=== PATIENT | female | born 1975 | race Caucasian/White ===

== ENCOUNTER 2019-07-01 08:46 | Observation (INO) | payer OTHER, SELFPAY ==
[2019-07-01] VITALS (17 sets, daily range): BP systolic 84–111; BP diastolic 53–77; PULSE 62–86; RESP 8–18; TEMP 36.1–37.1; O2SAT 92–100; BMI 33.5
--- NOTE | ~2019-07-01 | US_ITS ---
EXAMINATION: US renal BI DATE: 07/01/2019 16:52 INDICATION: Acute kidney injury TECHNIQUE: Multiple grayscale and Doppler ultrasound images of the kidneys were obtained. COMPARISON: None. FINDINGS: The right kidney measures 11.4 x 5.8 x 4.9 cm. The left kidney measures 11.4 x 5 x 7.2 cm. The kidneys demonstrate normal parenchymal echogenicity. There is no hydronephrosis. The bladder is n ormal. IMPRESSION: 1. Normal kidneys without hydronephrosis. Reviewed, dictated and finalized at location A.
--- NOTE | ~2019-07-01 | XR_ITS ---
EXAMINATION: XR chest 2V DATE: 07/01/2019 09:26 INDICATION: Left chest pain. TECHNIQUE: Frontal and lateral views of the chest were obtained. COMPARISON: None. FINDINGS: The chest demonstrates clear lungs without pneumonia, pleural effusion, or pneumothorax. Th e heart size is normal. IMPRESSION: 1. No acute cardiopulmonary disease. Reviewed, dictated and finalized at location A.
--- NOTE | 2019-07-01 08:55 | ECG_ITS ---
Measurements Intervals [place] Rate: 72 P: 36 NM: 158 QRS: 31 QRSD: 109 T: 37 QT: 416 QTc: 457 Interpretive Statements SINUS RHYTHM BORDERLINE R WAVE PROGRESSION, ANTERIOR LEADS BORDERLINE ST-T WAVE ABNORMALITY- HIGH LATERAL LEADS BORDERLINE ECG Electronically Signed On 07-01-2019 9:09:08 CDT by Erik Allan D.O.
--- NOTE | 2019-07-01 09:03 | ED.CHESTPAIN ---
HPI - Chest Pain General Chief Complaint: Chest Pain Stated Complaint: CP Source: patient and EMS Mode of arrival: EMS Limitations: no limitations History of Present Illness HPI narrative: Patient is a 43-year-old female who presents to the emergency department for evaluation of chest pain. Pain is described as a deep, aching sensation, pressure over the middle of chest and left side of the chest with radiation to the left shoulder and arm. Associated with nausea and vomiting this morning, diaphoresis, lightheadedness. 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 In transport, patient was given an aspirin and a nitroglycerin which helped improve her pain. Patient typically takes Suboxone, does not want any other pain medication. She has a positive family history for NC in an immediate family member, she has hypertension, hyperlipidemia and diabetes. She is a current smoker. Related Data Home Medications Medication Instructions Recorded Confirmed lithium carbonate 450 mg PO BID 07/01/19 Allergies Allergy/AdvReac Type Severity Reaction Status Date / Time morphine Allergy Severe Hives Verified 07/01/19 08:52 Review of Systems Review of Systems: Narrative: CONSTITUTIONAL: Denies fever, chills, or sweats. CARDIOVASCULAR: Reports chest pain, denies palpitations or edema RESPIRATORY: Denies cough or dyspnea. GASTROINTESTINAL: Denies abdominal pain, nausea, vomiting, or diarrhea. GENITOURINARY: Denies dysuria or hematuria. SKIN: Denies rash or itching. MUSCULOSKELETAL: Denies back pain, joint pain, or myalgia. NEUROLOGIC: Denies headache, numbness, or weakness. [facility] Past Medical History Medical History (Updated 07/01/19 @ 10:29 by Pilar Tubbs MD) Hyperlipidemia Hypertension Type 2 diabetes mellitus Surgical History Surgical History (Updated 07/01/19 @ 09:45 by Pilar Tubbs MD) H/O: hysterectomy Hx of tonsillectomy Social History Social History (Updated 07/01/19 @ 09:45 by Pilar Tubbs MD) Smoking status: Current every day smoker Tobacco type: cigarettes and e-cigarettes/vaping Alcohol intake: current Substance use: never Gender identity (if verbalized by the patient): Female Exam Narrative: Exam Narrative: GENERAL: Awake, alert, conversant HEAD: Normocephalic, atraumatic. EYES: PERRLA and EOMI. ENT: Nares clear, no rhinorrhea or epistaxis. Mucous membranes moist. NECK: Supple. CHEST: No respiratory distress, breathing even and non labored, no chest wall tenderness HEART: Regular rate, sinus rhythm ABDOMEN:Non distended, non tender EXTREMITIES: Normal range of motion. No edema. SKIN: Warm, dry, no rash. NEURO:No focal deficits. Alert and oriented x3 Course Vital Signs Vital signs: Vital Signs Temperature 37.1 C 07/01/19 08:44 Pulse Rate 80 07/01/19 08:44 Respiratory Rate 18 07/01/19 08:44 Blood Pressure 106/77 07/01/19 08:44 Pulse Oximetry 97 07/01/19 08:44 Temperature 37.1 C 07/01/19 08:44 Pulse Rate 66 07/01/19 09:48 Respiratory Rate 18 07/01/19 09:48 Blood Pressure 98/67 L 07/01/19 09:48 Pulse Oximetry 94 07/01/19 09:48 MDM - Chest Pain MDM Narrative Medical decision making narrative: Patient is a 43-year-old female who presents for evaluation of chest pain. At the time of initial assessment, ABCs are intact and vital signs are stable. Patient has borderline low blood pressure after receiving nitroglycerin in route by EMS. Patient with mild pain at this point. EKG with nonspecific findings. No evidence of acute ST elevation or depression that would be concerning for ischemia. Initial troponin is negative. Patient with a heart score of 5. Shared decision-making occurred, with the patient, I also spoke with the health unit clerk, we will admit her for troponin trend, health unit clerk will determine additional intervention if she will have st
[2019-07-01 09:11] LABS: Basophils Absolute Auto 0.1 K/mm3 (0.0-0.1); Basophils Percent Auto 0.4 % (0.2-1.2); Eosinophils Absolute Auto 0.4 K/mm3 (0-0.3); Hematocrit 34.4 % (37.0-47.0); Hemoglobin 10.9 g/dL (12.0-15.0); Immature Granulocyte Absolute 0.05 K/mm3 (0.00-0.031); Immature Granulocyte Percent A 0.4 % (0-0.5); Lymphocytes Absolute Auto 2.37 K/mm3 (0.9-3.2); Lymphocytes Percent Auto 17.1 % (18.3-44.2); Mean Corpuscular HGB Conc 31.7 g/dl (32-36); Mean Corpuscular Hemoglobin 26.7 pg (26-34); Mean Corpuscular Volume 84.3 fl (80-100); Mean Platelet Volume 10.9 fl (7.4-10.4); Monocytes Absolute Auto 0.8 K/mm3 (0.1-0.6); Monocytes Percent Auto 5.5 % (2.6-8.5); Neutrophils Absolute Auto 10.2 K/mm3 (1.3-6.7); Neutrophils Percent Auto 73.6 % (45.5-73.1); Platelet Count Result 358 k/mm3 (150-375); Red Blood Count 4.08 M/mm3 (4.2-5.4); Red Cell Distribution Width 14.3 % (11.5-14.5); White Blood Count 13.9 K/mm3 (4.5-10.0)
[2019-07-01 09:16] LABS: INR 0.9; Partial Thromboplastin Time 28.7 SECONDS (22.3-36.8); Prothrombin Time 11.9 Seconds (11.1-14.7)
[2019-07-01 09:17] LABS: Blood Urea Nitrogen 7 mg/dL (7-17); Calcium 9.5 mg/dL (8.4-10.2); Carbon Dioxide 27 mmol/L (22-30); Chloride 99 mmol/L (98-107); Estimated CRCL calculation 50 ml/min; Estimated Glomerular Filt Rate 38; Glucose 158 mg/dL (65-105); Potassium 2.9 mmol/L (3.4-5.0); Sodium 138 mmol/L (137-145)
[2019-07-01 09:30] LABS: Troponin I < 0.012 ng/mL (0.000-0.034)
[2019-07-01] MEDS: SODIUM CHLORIDE 0.9% IV 1,000 ML 999 ML IV CONT (10:37)
[2019-07-01] MEDS: POTASSIUM CHLORIDE 20 MEQ PACKET (FOR LIQUID) 40 MEQ PO (10:38)
--- NOTE | 2019-07-01 11:47 | ADMGEN ---
This patient, Martha Dumont, was admitted to IMU Room 213-01 on 07-01-2019 at 1125. Patient/family oriented to hospital policies and general routines including ID bracelet, bed and alarms, visiting hours, pain management, procedures, bathroom and other care routines, personal items, smoking policy, room service/diet, and visiting hours. Valuables list has been completed. Information on how to activate the Rapid Response Team has been discussed. Patient/Family are encouraged to report perceived risks to care and to ask questions if they do not understand what they are told or what they should do.
[2019-07-01 12:40] LABS: Troponin I < 0.012 ng/mL (0.000-0.034)
--- NOTE | 2019-07-01 12:40 | PM.CNCAR ---
Assessment and Plan Assessment and plan (1) Chest pain: Qualifiers: Chest pain type: unspecified Qualified Code(s): R07.9 - Chest pain, unspecified Code(s): R07.9 - Chest pain, unspecified Status: Acute Assessment and Plan: 43 y/o with h/o HTN, DM, HLD, active tobacco abuse who presented with chest pain. She ruled out for SC so far with EKG and first trop. Second trop pending Chest pain characteristic are very typical for anginal. With her multiple cardiovascular risk factors and strong family history will proceed with LHC/coronary angiogram to assess for CAD and potentially treat with PCI if needed. She received ASA but has not received second antiplatelet. I explained procedure in details to patient. She understands risks and benefits. She is willing to proceed. Would need to hold Metformin for 2 days post procedure. (2) Hypertension: Code(s): I10 - Essential (primary) hypertension Status: Acute Assessment and Plan: Resume Losartan (3) Type 2 diabetes mellitus: Code(s): E11.9 - Type 2 diabetes mellitus without complications Status: Acute Assessment and Plan: Hold Metformin for LHC. (4) Hyperlipidemia: Code(s): E78.5 - Hyperlipidemia, unspecified Status: Acute Assessment and Plan: Start high intensity Statin if not already on one. History of Present Illness History of Present Illness Consult date/time: 07/01/19 12:40 43 y/o female with h/o HTN, Dm (since 2012), active tobacco and marijuana abuse, prior narcotic use use now on suboxone, bipolar on [place] who presented with chest pain. She was at work when developed left sided chest pressure that radiated down to her left arm. She was not doing any thing exertional at that time. chest pressure was associated with nausea, diaphoresis and dizziness. Pain lasted for an hour and eventually her co-workers called ambulance. She received nitro in ER which decreased her pain from 8/10 to 3/10. She continues to have very mild residual pressure sensation. EKG showed normal sinus rhythm and non specific CT changes. First trop is negative. Second trop pending She smokes marijunan daily. She smokes 1 pack every 2-3 days Her mother (mid 60s) has CAD with many stents in heart and legs. Father has DM Reason For Visit: Unstable angina Review of Systems Review of Systems: All systems reviewed & are unremarkable except as noted in HPI and below Constitutional: Constitutional: Denies fatigue and Denies headache(s) Eyes: Eyes: Denies blurry vision ENT: Reports Normal hearing present and Denies headache(s) Cardiovascular: Cardiovascular: Denies chest pain, Denies diaphoresis, Denies pedal edema, Denies leg edema, Denies lightheadedness, Denies palpitations and Denies dyspnea Respiratory: Respiratory: Denies cough and Denies dyspnea Gastrointestinal: Gastrointestinal: Denies abdominal pain Musculoskeletal: Musculoskeletal: Denies back pain Neurologic: Reports Normal hearing present and Denies headache(s) Psychiatric: Psychiatric: Denies anxiety Endocrine: Endocrine: Denies fatigue and Denies palpitations PMFSH Past Medical History Medical History (Updated 07/01/19 @ 12:47 by Marino Rojas MD) Hyperlipidemia Hypertension Type 2 diabetes mellitus Surgical History Surgical History (Updated 07/01/19 @ 09:45 by Pilar Tubbs MD) H/O: hysterectomy Hx of tonsillectomy Family History Family History (Updated 07/01/19 @ 11:50 by Jesi Chester RN) Mother Cerebrovascular accident Liver cancer Peripheral vascular disease Rheumatoid arthritis TIA (transient ischemic attack) Father Diabetes mellitus Sibling Lupus Rheumatoid arthritis Social History Social History (Updated 07/01/19 @ 09:45 by Pilar Tbubs MD) Smoking packs per day: 0.25 Smoking cigarettes per day: 5.0 Years smoked: 28 Smoking pack-years: 7.00 Smoking status: Current
--- NOTE | 2019-07-01 13:08 | PM.IMHP ---
H&P: HPI History of Present Illness Chief complaint: Unstable angina Narrative: Martha Dumont is a 43 year old female with DM, HTN, and HLD who presents to the emergency department for evaluation of chest pain. Patient states this morning around 5:00 a.m. she woke with pressure and tightness in the chest. It radiated to the left arm. This discomfort has been constant but waxes and wanes in severity. While at work doing light activity, she had increasing severity of the pain with associated shortness of breath and diaphoresis.. She did have nausea and vomiting this morning but does have cyclic vomiting syndrome she states. The chest discomfort improved when sitting. The pain might have been mildly pleuritic but was not palpable or positional. She has diabetes but does not check her glucose at home. Last A1c was 8.9. She also has high blood pressure High cholesterol is compliant with her medications. She states her physician feels her blood pressure and cholesterol as well controlled. EMS was contacted. In transport, patient was given an aspirin and a nitroglycerin which helped improve her pain. Patient brought to the emergency room for evaluation. In the emergency room, patient was hemodynamically stable. Patient's blood pressure was soft at times so no further nitroglycerin was given. Patient's potassium was low 2.9 and this was replaced. She is mildly anemic but she states this is chronic. White count is elevated but she denies dysuria, hematuria, fever, chills. She has a chronic smoker's cough without change. Patient is admitted for further care. Patient has been seen by Cardiology with plans for heart catheterization later today. Patient is under quite a bit of stress. She lives with her roommate who used to be her partner. Her ex-partner is seeing someone else now. This is stress ful and patient feels suicidal. She however states she has been suicidal for 45 yrs. She sees a a counselor with plans in seeing them in July. She has not attempted suicide. Patient has started lithium recently. Review of Systems Review of Systems: All systems reviewed & are unremarkable except as noted in HPI and below PMFSH Past Medical History Medical History (Updated 07/01/19 @ 13:56 by Eddie Hauser MD) Bipolar disorder History of drug use Hyperlipidemia Hypertension Type 2 diabetes mellitus Peripheral neuropathy Surgical History Surgical History (Updated 07/01/19 @ 13:50 by Eddie Hauser MD) H/O: hysterectomy Hx of oophorectomy bilateral Hx of tonsillectomy Family History Family History Mother Cerebrovascular accident Liver cancer Peripheral vascular disease Rheumatoid arthritis TIA (transient ischemic attack) Father Diabetes mellitus Sibling Lupus Rheumatoid arthritis Social History Social History (Updated 07/01/19 @ 13:51 by Eddie Hauser MD) Social History: Lives with her roommate who used to be her partner. She smokes a quarter of a pack a day the past 28 years. She smokes marijuana daily. No alcohol use. No history of IV drug use. She used to have a history of snorting heroin. She is a full code. She nominates mother to be the individual would make medical decisions for her if she is not able. Smoking packs per day: 0.25 Smoking cigarettes per day: 5.0 Years smoked: 28 Smoking pack-years: 7.00 Smoking status: Current every day smoker Tobacco type: cigarettes and e-cigarettes/vaping Alcohol intake: never Substance use: current Substance use type: marijuana Gender identity (if verbalized by the patient): Female Spiritual care concerns: No Meds Home Medications and Allergies Home Medications Medication Instructions Recorded Confirmed Type atorvastatin 40 mg PO DAILY 07/01/19 07/01/19 History baclofen 10 mg PO BID PRN 07/01/19 07/01/19 History buprenorphine-naloxone 1 tablet SUBLINGUAL Q8H 07/01/19
--- NOTE | 2019-07-01 14:03 | WPDMODSED ---
Moderate Sedation Note-Pt Data Patient Data Allergies Allergy/AdvReac Type Severity Reaction Status Date / Time morphine Allergy Severe Hives Verified 07/01/19 12:16 Home Medications Medication Instructions Recorded Confirmed Type lithium carbonate 450 mg PO BID 07/01/19 History Current Medications: Active Medications Acetaminophen (Tylenol Tablet) 650 mg PO Q4H PRN PRN Reason: Mild Pain (1-3) or Fever Aspirin (Aspirin Chewable) 81 mg PO DAILY@0800 NIRANJAN Nitroglycerin (Nitrostat Subl 0.4 Mg (1/150)) 0.4 mg SUBLINGUAL Q5MIN PRN PRN Reason: Chest Pain Ondansetron HCl (Zofran Inj) 4 mg IV PUSH Q4H PRN PRN Reason: Nausea Sedation/Anesthesia: No previous sedation/anesthesia problems (including family history). [facility] Past Medical History Medical History (Updated 07/01/19 @ 13:56 by Eddie Hauser MD) Bipolar disorder History of drug use Hyperlipidemia Hypertension Type 2 diabetes mellitus Peripheral neuropathy Surgical History Surgical History (Updated 07/01/19 @ 13:50 by Eddie Hauser MD) H/O: hysterectomy Hx of oophorectomy bilateral Hx of tonsillectomy Family History Family History Mother Cerebrovascular accident Liver cancer Peripheral vascular disease Rheumatoid arthritis TIA (transient ischemic attack) Father Diabetes mellitus Sibling Lupus Rheumatoid arthritis Social History Social History (Updated 07/01/19 @ 13:51 by Eddie Hauser MD) Social History: Lives with her roommate who used to be her partner. She smokes a quarter of a pack a day the past 28 years. She smokes marijuana daily. No alcohol use. No history of IV drug use. She used to have a history of snorting heroin. She is a full code. She nominates mother to be the individual would make medical decisions for her if she is not able. Smoking packs per day: 0.25 Smoking cigarettes per day: 5.0 Years smoked: 28 Smoking pack-years: 7.00 Smoking status: Current every day smoker Tobacco type: cigarettes and e-cigarettes/vaping Alcohol intake: never Substance use: current Substance use type: marijuana Gender identity (if verbalized by the patient): Female Spiritual care concerns: No Mod Sed Physical Exam Physical Exam Pre Procedural Exam: Normal: Appearance, Eyes, Ears, Nose, Neck, Throat, Airway, Lungs, Heart Size, Heart Rate, Heart Rhythm, Neuro Exam, Abdomen, Liver, Kidneys, Spleen, Breasts, Genitalia, Extremities and Skin Hours since solid foods: 8 Hours since liquid intake: 8 Internal Medicine - PN: Obj Da Vital Signs Vital Signs: Vital Signs - 24 hr 07/01/19 08:44 07/01/19 08:50 07/01/19 09:48 Temperature 37.1 C Pulse Rate 80 74 66 Respiratory Rate 18 18 Blood Pressure 106/77 98/67 L Pulse Oximetry 97 94 07/01/19 11:18 07/01/19 11:25 Temperature 36.1 C L Pulse Rate 78 82 Respiratory Rate 16 14 Blood Pressure 97/55 L 102/65 Pulse Oximetry 100 98 Intake/Output Intake/Output: Intake & Output 06/28/19 06/29/19 06/30/19 07/01/19 23:59 23:59 23:59 23:59 Intake Total 1000 Balance 1000 Meds/Results Medications: Active Medications Generic Name Dose Route Start Last Admin Trade Name Freq PRN Reason Stop Dose Admin Acetaminophen 650 mg 07/01/19 10:26 Tylenol Tablet PO Q4H PRN Mild Pain (1-3) or Fever Aspirin 81 mg 07/02/19 08:00 Aspirin Chewable PO DAILY@0800 [facility] Nitroglycerin 0.4 mg 07/01/19 10:26 Nitrostat Subl 0.4 Mg (1/150) SUBLINGUAL Q5MIN PRN Chest Pain Ondansetron HCl 4 mg 07/01/19 10:26 Zofran Inj IV PUSH Q4H PRN Nausea Radiology Results: ITS Impressions Chest X-Ray 07/01/19 09:28 IMPRESSION: 1. No acute cardiopulmonary disease. Labs CBC & Chem 7: 07/01/19 08:58 07/01/19 08:58 Labs: Laboratory Results - last 24 hr 07/01/19 07/01/19 07/01/19
--- NOTE | 2019-07-01 14:31 | P.PCNCC_ITS ---
Cardiac Cath Procedure Note Date of procedure:: 07/01/19 Performing physician:: Gerber Rock MD Procedure: 1. Left heart catheterization, selective coronary angiogram. 2. Left ventricular angiogram. 3. Conscious sedation. 4. Angio-Seal device for arterial hemostasis Head Packager: Dr. Gerber Rock Complications: None. Sedation: Conscious sedation, local anesthesia, using 1 mg of Versed said, 25 mcg of fentanyl, and using 1% lidocaine for local anesthesia. Technique: After informed consent was obtained from patient, was brought to the laborer stores, put in the laborer stores table, prepped and draped in usual sterile fashion. Five [place] sheath was inserted into the right common femoral artery, through the sheath 5 [place] JL4 catheter inserted, advanced to the left coronary artery, left coronary artery angiogram was obtained. The catheter was exchanged over guidewire into a 5 [place] JR4 catheter, advanced to the right coronary artery, right coronary artery angiogram was obtained. The catheter then was exchanged over guidewire into this 5 [place] pigtail catheter, advanced to left ventricle, left ventricular angiogram was obtained. The catheter then was pulled, the sheath was pulled applying Angio-Seal device for arterial hemostasis. Patient tolerated the procedure no complication, taken fro m the laborer stores to his room in stable condition stable vital signs. Hemodynamics: aortic pressure 104/60 . LV pressure 104/04 with LVEDP of 14 mmHg Angiographic findings: Left main: Medium size artery no significant disease or stenosis. Lad medium size artery showed no significant disease or stenosis Left circumflex artery, medium size artery, no significant disease or stenosis. RCA: Dominant vessel, showed no significant disease or stenosis LV: Normal size left ventricle with normal left ventricular systolic function. Summary: Mild coronary artery disease, normal left ventricular systolic function. Recommendation: Maximum medical treatment. Risk factor modification.
[2019-07-01] MEDS: SODIUM CHLORIDE 0.9% IV 1,000 ML 125 ML IV CONT (16:00)
[2019-07-01 17:19] LABS: Cholesterol 132 mg/dL (0-200); HDL Direct 27 mg/dL; Triglycerides 199 mg/dL (<150)
[2019-07-01 17:28] LABS: Troponin I < 0.012 ng/mL (0.000-0.034)
[2019-07-01 17:29] LABS: LDL Cholesterol Direct 70 mg/dL
[2019-07-01 17:35] LABS: Glucose Point of Care 84 (65-105)
--- NOTE | 2019-07-01 18:35 | PM.DS ---
DS: Diagnosis Admitting Diagnosis Admitting Diagnosis: Chest pain, unspecified Discharge Diagnosis (1) Chest pain: Qualifiers: Chest pain type: unspecified Qualified Code(s): R07.9 - Chest pain, unspecified Code(s): R07.9 - Chest pain, unspecified Status: Acute Assessment and Plan: Patient has been admitted to IMU. Aspirin has been continued. Trop X3 is negative. EKG showing borderline R-wave progression and borderline ST T wave changes in high lateral leads. Cardiology has been consulted. Left heart catheterization performed on 07/01/19 showing mild coronary artery disease, normal left ventricular systolic function. Continue medical management. (2) Suicidal ideation: Code(s): R45.851 - Suicidal ideations Status: Acute Assessment and Plan: Patient feels suicidal but this seems to be more chronic situation. She is currently on medications for bipolar/depression. We had Crisis consulted and safety contract made. Continue home medications. Follow up with counselor in July. (3) Type 2 diabetes mellitus: Code(s): E11.9 - Type 2 diabetes mellitus without complications Status: Acute Assessment and Plan: Last A1c was 8.9. Placed on sliding scale protocol. (4) Hypertension: Code(s): I10 - Essential (primary) hypertension Status: Acute Assessment and Plan: Blood pressure soft at times. She is on losartan and hydrochlorothiazide. She may be dehydrated given the renal insufficiency. The hypokalemia most likely related to the medications. She was treated with IV fluids. Plan to hold antihypertensive medications. (5) Renal insufficiency: Code(s): N28.9 - Disorder of kidney and ureter, unspecified Status: Acute Assessment and Plan: Creatinine 1.5 with a normal BUN. Baseline creatinine unavailable. She was started on IV fluids. Antihypertensive medications held. Renal US results pending. (6) Hypokalemia: Code(s): E87.6 - Hypokalemia Status: Acute Assessment and Plan: Potassium 2.9 most likely related to the hydrochlorothiazide. This has been replaced. (7) Bipolar disorder: Code(s): F31.9 - Bipolar disorder, unspecified Status: Acute Assessment and Plan: Patient on multiple medications for bipolar disorder. [place] may be resulting in the leukocytosis. (8) Hyperlipidemia: Code(s): E78.5 - Hyperlipidemia, unspecified Status: Acute Assessment and Plan: Patient currently on atorvastatin. LDL 70 and HDL 27. DS: Summary Hospital Course Reason for hospitalization: 43yo female here for CP. Please see H&P for details. Hospital Course: As above Time Spent with Patient Time attestation: Total time spent providing and/or coordinating discharge services:40 Time spent: Greater than 30 minutes Exam Narrative: Exam Narrative: Gen - NARD sitting up in bed HEENT - NC/AT, PEERL, EOMI, Sclera clear and anicteric, mmm Neck - supple, no masses. 2+ carotid upstrokes without bruits. Chest - CTA bilaterally, nml RR CV - RRR S1/S2. No murmurs, gallops or rubs. Abd - Soft, NT/ND, Positive BS Ext - No pedal edema Neuro - Alert and oriented. Nonfocal exam. Psych - Nml mood and affect. Good eye contact. Skin - Warm and dry. Multiple tattoos. DS: Data Data Completed and Pending Labs on day of discharge: Labs from last 24 hours 07/01/19 07/01/19 07/01/19 17:34 16:35 16:35 WBC RBC Hgb Hct MCV MCH MCHC RDW Plt Count MPV Immature Gran % (Auto) Neut % (Auto) Lymph % (Auto) [place] % (Auto) Eos % (Auto) Baso % (Auto) Lymph # (Auto) [place] # (Auto) Eos # (Auto) Baso # (Auto) Abs Immat Gran (auto) Absolute Neuts (auto) Absolute Nucleated RBC Nucleated RBC % PT INR APTT Sodium Potassium Chloride Carbon Dioxide BUN Creat
--- NOTE | 2019-07-06 09:53 | PC.NURSE ---
Renal U/S- normal kidneys without hydronephrosis.
== END 2019-07-01 19:38 | disposition home or self-care (01) ==
LOC: ANHED 10:30 → ANHIMU 11:23
PROVIDERS: Specialist; Admitting Provider Internal Medicine; Emergency Provider Emergency Medicine; Visit Provider Internal Medicine
PROC: 4A023N7 Measurement of Cardiac Sampling and Pressure, Left Heart, Percutaneous Approach (ICD-10-PCS; CPT 93452; principal; 2019-07-01 13:30)
DX: R07.9 Chest pain, unspecified (principal); R45.851 Suicidal ideations; E11.42 Type 2 diabetes mellitus with diabetic polyneuropathy; I10 Essential (primary) hypertension; N28.9 Disorder of kidney and ureter, unspecified; E87.6 Hypokalemia; E78.5 Hyperlipidemia, unspecified; F31.9 Bipolar disorder, unspecified; F17.210 Nicotine dependence, cigarettes, uncomplicated; F17.298 Nicotine dependence, other tobacco product, with other nicotine-induced disorders; Z79.899 Other long term (current) drug therapy
CPT/HCPCS: 36415; 71046; 76775; 80048; 80061; 84484; 85025; 85610; 85730; 93005; 93458; 96360; 96361; 99285; A9270; C1760; C1887; C1894; G0269; G0378; G0379; J1644; J2250; J3010; J7030; J7040